=== PATIENT | female | born 1995 | race Caucasian/White ===

== ENCOUNTER 2016-12-23 09:40 | Emergency (ER) | payer BC ==
[2016-12-23] MEDS ORDERED: ONDANSETRON ODT 4 MG TABLET TL STA (12:31)
[2016-12-23] MEDS ORDERED: ONDANSETRON ODT 4 MG TABLET ONE ×2 (12:34→12:37)
== END 2016-12-23 12:59 | disposition home or self-care (01) ==
DX: R11.0 Nausea (principal); R53.1 Weakness; R35.8 Other polyuria
CPT/HCPCS: 36415; 80053; 80178; 81003; 83690; 84443; 84703; 85025; 99283; Q0162

== ENCOUNTER 2017-05-07 19:02 | Emergency (ER) | payer BC ==
--- NOTE | 2017-05-07 19:21 | ED Physician Documentation ---
PD HPI LOWER EXT INJURY - Stated complaint Stated Complaint: RT LEG PX - Chief complaint Chief Complaint: Ext Problem - History obtained from History obtained from: Patient - History of Present Illness PD HPI LOW EXT INJURY LOCATION: Right, Lower leg (It started hurting her that after doing a lot of exercise, there was no clear obvious injury though. This was 2 weeks ago and it's been hurting in the calf ever since and she is walking with a limp. There is no associated chest pain or trouble breathing.) Review of Systems Constitutional: reports: Reviewed and negative Cardiac: reports: Reviewed and negative Respiratory: reports: Reviewed and negative GI: reports: Reviewed and negative PD PAST MEDICAL HISTORY - Past Medical History Cardiovascular: None Respiratory: None Neuro: None Endocrine/Autoimmune: None GI: None Psych: Bipolar disorder - Past Surgical History Past Surgical History: No - Present Medications Home Medications: Ambulatory Orders Medication Instructions Recorded Confirmed Fluoxetine HCl [Prozac] 12/23/16 [place] Carbonate 12/23/16 Olanzapine 5 mg 12/23/16 Ondansetron HCl [Zofran] 4 mg PO Q6H PRN #20 tablet 12/23/16 Physical Therapy 1 unit .ROUTE ONCE #1 05/07/17 - Allergies Allergies/Adverse Reactions: Allergies Allergy/AdvReac Type Severity Reaction Status Date / Time No Known Drug Allergies Allergy Verified 05/07/17 19:12 - Social History Does the pt smoke?: No Smoking Status: Never smoker Does the pt drink ETOH?: No Does the pt have substance abuse?: No - POLST Patient has POLST: No PD ED PE NORMAL - Vitals Vital signs reviewed: Yes - General General: Alert and oriented X 3, No acute distress - Cardiac Cardiac: RRR, No murmur - Respiratory Respiratory: No respiratory distress, Clear bilaterally - Abdomen Abdomen: Non tender, Non distended - Extremities Extremities: Other (No clear asymmetry, edema, or tenderness of the right calf. Negative Homans sign.) - Neuro Neuro: Alert and oriented X 3, Normal speech - Psych Psych: Normal mood, Normal affect Results - Vitals Vitals: Vital Signs - 24 hr 05/07/17 19:09 Temperature 36.8 C Heart Rate 65 Respiratory 17 Rate Blood Pressure 120/67 O2 Saturation 99 Oxygen O2 Source Room air - Labs Labs: Laboratory Tests 05/07/17 05/07/17 05/07/17 19:35 19:35 19:35 WBC 9.2 RBC 4.58 Hgb 13.5 Hct 39.3 MCV 85.9 MCH 29.5 MCHC 34.4 RDW 12.5 Plt Count 319 MPV 8.6 Neut # 4.6 Lymph # 3.7 H [place] # 0.8 Eos # 0.1 Baso # 0.0 Absolute Nucleated RBC 0.00 Nucleated RBCs 0.0 Sodium 136 Potassium 4.1 Chloride 103 Carbon Dioxide 23 Anion Gap 10.0 BUN 12 Creatinine 0.7 Estimated GFR (MDRD) 105 Glucose 109 H Calcium 9.7 Serum HCG, Qual NEGATIVE Last Dose Date UNK Last Dose Time UNK [place] < 0.05 - Rads (name of study) RLE duplex Radiology: Prelim report reviewed (neg for DVT) PD MEDICAL DECISION MAKING - ED course ED course: Seemed like a leg strain/injury, that said it wasn't clear episode of injury so DVT was considered but ultrasound negative. Departure - Departure Disposition: 01 Home, Self Care Clinical Impression: Pain of lower extremity Qualifiers: Laterality: right Qualified Code(s): M79.604 - Pain in right leg Muscle strain of right lower leg Qualifiers: Encounter type: initial encounter Qualified Code(s): S86.911A - Strain of unspecified muscle(s) and tendon(s) at lower leg level, right leg, initial encounter Condition: Good Record reviewed to determine appropriate education?: Yes Instructions: ED Strain Muscle Ext Prescriptions: Physical Therapy 1 unit .ROUTE ONCE #1 Comments: Tylenol ibuprofen as needed for pain. Return if worse. Call your doctor to arrange a follow up appointment. Make the next available appointment. In the interim return anytime if worse or if new symptoms develop.
[2017-05-07 19:43] LABS: BASOPHILS % (AUTO) 0.3 %; EOSINOPHILS # (AUTO) 0.1 10^3/uL (0.0-0.7); HCT - HEMATOCRIT 39.3 % (37.0-47.0); HGB - HEMOGLOBIN 13.5 g/dL (12.0-16.0); LYMPHOCYTES # (AUTO) 3.7 10^3/uL (1.5-3.5); LYMPHOCYTES % (AUTO) 39.8 %; MEAN CORPUSCULAR HEMOGLOBIN 29.5 pg (27.0-31.0); MEAN CORPUSCULAR HGB CONC 34.4 g/dL (32.0-36.0); MEAN CORPUSCULAR VOLUME 85.9 fL (81.0-99.0); MEAN PLATELET VOLUME 8.6 fL (7.9-10.8); MONOCYTES # (AUTO) 0.8 10^3/uL (0.0-1.0); MONOCYTES % (AUTO) 8.4 %; NEUTROPHILS # (AUTO) 4.6 10^3/uL (1.5-6.6); NEUTROPHILS % (AUTO) 50.5 %; RED BLOOD COUNT 4.58 10^6/uL (4.20-5.40); RED CELL DISTRIBUTION WIDTH 12.5 % (12.0-15.0); UNCORRECTED WHITE BLOOD COUNT 9.2 x10^3/uL; WHITE BLOOD COUNT 9.2 x10^3/uL (4.8-10.8)
[2017-05-07 20:05] LABS: BUN - BLOOD UREA NITROGEN 12 mg/dL (6-20); CALCIUM 9.7 mg/dL (8.5-10.3); CARBON DIOXIDE - CO2 23 mmol/L (21-32); CHLORIDE 103 mmol/L (101-111); CREATININE 0.7 mg/dL (0.4-1.0); GFR - MDRD 105 (>89); GLUCOSE 109 mg/dL (70-100); POTASSIUM 4.1 mmol/L (3.5-5.0); SODIUM 136 mmol/L (135-145)
--- NOTE | 2017-05-07 21:19 | Ultrasound Preliminary Report ---
Exam: US Duplex Ext Veins Right IMPRESSION: No evidence for deep venous thrombosis. [facility] SITE ID: [id number]
--- NOTE | 2017-05-07 21:22 | Ultrasound Report ---
EXAM: RIGHT LOWER EXTREMITY VENOUS ULTRASOUND EXAM DATE: 05/07/2017 09:14 PM. CLINICAL HISTORY: Right leg and calf pain x2 weeks. COMPARISON: None. TECHNIQUE: Real-time sonographic vascular imaging was performed by the chief nursing officer through the lower extremity utilizing both color-flow and Doppler spectral analysis. Multiple claims representative static nate ges were saved for review. FINDINGS: Common Femoral Vein (CFV): Normal. CFV-GSV Junction: Normal. Profunda Femoral Vein (PFV): Normal. Femoral Vein (FV) Prox: Normal. Femoral Vein (FV) Mid: Normal. Femoral Vein (FV) Dist: Normal. Popliteal Vein: Normal. Posterior Tibial Veins: Normal. Peroneal Veins: Normal. Other: Targeted evaluation of the area of pain in the right calf reveals no underlying sonographic ab normality. IMPRESSION: No evidence for deep venous thrombosis. [facility] Referring Provider Line: [phone] SITE ID: [id number]
[2017-05-07 21:55] VITALS: BP 129/70
== END 2017-05-07 21:53 | disposition home or self-care (01) ==
LOC: ED 19:02
DX: S86.911A Strain of unspecified muscle(s) and tendon(s) at lower leg level, right leg, initial encounter (principal); X58.XXXA Exposure to other specified factors, initial encounter; M79.661 Pain in right lower leg
CPT/HCPCS: 36415; 80048; 80178; 84703; 85025; 99283; 99284

== ENCOUNTER 2017-05-12 18:32 | Emergency (ER) | payer BC ==
[2017-05-12 19:01] LABS: BILIRUBIN,URINE NEGATIVE (NEGATIVE)
[2017-05-12 19:04] LABS: HCG UR QUAL NEGATIVE; UA CHARGE (STRIP ONLY) YES; UR CULTURE IF IND NOT INDICATED
[2017-05-12 19:19] LABS: BASOPHILS % (AUTO) 0.4 %; EOSINOPHILS # (AUTO) 0.1 10^3/uL (0.0-0.7); EOSINOPHILS % (AUTO) 0.9 %; HCT - HEMATOCRIT 39.4 % (37.0-47.0); HGB - HEMOGLOBIN 13.4 g/dL (12.0-16.0); LYMPHOCYTES # (AUTO) 2.8 10^3/uL (1.5-3.5); MEAN CORPUSCULAR HEMOGLOBIN 29.4 pg (27.0-31.0); MEAN CORPUSCULAR HGB CONC 33.9 g/dL (32.0-36.0); MEAN CORPUSCULAR VOLUME 86.8 fL (81.0-99.0); MEAN PLATELET VOLUME 8.5 fL (7.9-10.8); MONOCYTES # (AUTO) 0.5 10^3/uL (0.0-1.0); MONOCYTES % (AUTO) 6.2 %; NEUTROPHILS % (AUTO) 54.5 %; NUCLEATED RED BLOOD CELLS AUTO 0.1 /100WBC; RED BLOOD COUNT 4.55 10^6/uL (4.20-5.40); RED CELL DISTRIBUTION WIDTH 12.4 % (12.0-15.0); UNCORRECTED WHITE BLOOD COUNT 7.4 x10^3/uL; WHITE BLOOD COUNT 7.4 x10^3/uL (4.8-10.8)
[2017-05-12 19:34] LABS: ALBUMIN/GLOBULIN RATIO 1.4 (1.0-2.2); BILIRUBIN,TOTAL 0.7 mg/dL (0.2-1.0); CALCIUM 9.8 mg/dL (8.5-10.3); CREATININE 0.7 mg/dL (0.4-1.0); POTASSIUM 3.2 mmol/L (3.5-5.0); TOTAL PROTEIN 7.8 g/dL (6.7-8.2)
[2017-05-12 19:42] VITALS: BP 118/63
[2017-05-12] MEDS ORDERED: ONDANSETRON ODT 4 MG TABLET TL STA (20:02)
[2017-05-12] MEDS ORDERED: ONDANSETRON ODT 4 MG TABLET ONE (20:21)
--- NOTE | 2017-05-12 22:01 | ED Physician Documentation ---
History of Present Illness - Stated complaint Stated Complaint: NAUSEA/SWEATING - Chief complaint Chief Complaint: Abd Pain - History obtained from History obtained from: Patient - History of Present Illness Timing: Today Pain level max: 0 Pain level now: 0 - Additonal information Additional information: Patient is a 22-year-old female who presents to the emergency department stating that she feels nauseated and hot. She arrived to the emergency department and a full body fleece Sohail bruno on an 80+ degree day. She has not been taking her psychiatric medications regularly. She states that she was here in the emergency department last week for something, but does not recall what she was here for. She denies any hallucinations. Denies suicidal or homicidal ideation. Review of Systems Constitutional: denies: Fever, Chills Throat: denies: Sore throat Cardiac: denies: Chest pain / pressure Respiratory: denies: Cough GI: reports: Nausea. denies: Abdominal Pain, Vomiting, Constipation, Diarrhea, Hematemesis, Bloody / black stool : denies: Dysuria, Frequency, Hesitancy, Now EGA Skin: denies: Rash Musculoskeletal: denies: Neck pain, Back pain PD PAST MEDICAL HISTORY - Past Medical History Cardiovascular: None Respiratory: None Neuro: None Endocrine/Autoimmune: None GI: None Psych: Bipolar disorder - Past Surgical History Past Surgical History: No - Present Medications Home Medications: Ambulatory Orders Medication Instructions Recorded Confirmed Fluoxetine HCl [Prozac] 40 mg PO DAILY 12/23/16 05/12/17 [place] Carbonate 150 mg PO DAILY 12/23/16 05/12/17 Olanzapine 15 mg PO DAILY 12/23/16 05/12/17 - Allergies Allergies/Adverse Reactions: Allergies Allergy/AdvReac Type Severity Reaction Status Date / Time No Known Drug Allergies Allergy Verified 05/07/17 19:12 - Social History Does the pt smoke?: No Smoking Status: Never smoker Does the pt drink ETOH?: No Does the pt have substance abuse?: No - POLST Patient has POLST: No PD ED PE NORMAL - Vitals Vital signs reviewed: Yes - General General: Alert and oriented X 3, No acute distress, Well developed/nourished - HEENT HEENT: PERRL, Moist mucous membranes - Neck Neck: Supple, no meningeal sign - Cardiac Cardiac: RRR - Respiratory Respiratory: No respiratory distress, Clear bilaterally - Abdomen Abdomen: Normal bowel sounds, Soft, Non tender, Non distended, No organomegaly - Back Back: No CVA TTP, No spinal TTP - Derm Derm: Warm and dry, No rash - Neuro Neuro: Alert and oriented X 3 - Psych Psych: Normal mood, Normal affect Results - Vitals Vitals: Vital Signs - 24 hr 05/12/17 05/12/17 18:36 19:41 Temperature 36.9 C 37.1 C Heart Rate 66 68 Respiratory 18 14 Rate Blood Pressure 131/70 H 118/63 O2 Saturation 100 96 Oxygen O2 Source Room air - Labs Labs: Laboratory Tests 05/12/17 05/12/17 05/12/17 18:50 19:07 19:07 WBC 7.4 RBC 4.55 Hgb 13.4 Hct 39.4 MCV 86.8 MCH 29.4 MCHC 33.9 RDW 12.4 Plt Count 303 MPV 8.5 Neut # 4.0 Lymph # 2.8 [place] # 0.5 Eos # 0.1 Baso # 0.0 Absolute Nucleated RBC 0.00 Nucleated RBCs 0.1 Sodium 137 Potassium 3.2 L Chloride 101 Carbon Dioxide 27 Anion Gap 9.0 BUN 11 Creatinine 0.7 Estimated GFR (MDRD) 105 Glucose 139 H Calcium 9.8 Total Bilirubin 0.7 AST 20 ALT 23 Alkaline Phosphatase 71 Total Protein 7.8 Albumin 4.5 Globulin 3.3 Albumin/Globulin Ratio 1.4 Lipase 20 L Urine Color YELLOW Urine Clarity CLEAR Urine pH 6.0 Ur Specific [place] 1.010 Urine Protein NEGATIVE Urine Glucose (UA) NEGATIVE Urine Ketones NEGATIVE Urine Occult Blood NEGATIVE Urine Nitrite NEGATIVE Urine Bilirubin NEGATIVE Urine Urobilinogen 0.2 (NORMAL) Ur Leukocyte Esterase NEGATIVE Ur Microscopic Review NOT INDICATED Urine Culture Comments NOT INDICATED Urine HCG, Qual NEGATIVE Last Dose Date Last Dose Time [place] 05/12/17 19:24 WBC RBC Hgb Hct MCV MCH MCHC RDW Plt Count MPV Neut # Lymph # [place] # Eos # Baso # Absolute Nucleated RBC Nucleated RBCs Sodium Potassium Chloride Carbon Dioxide Anion Gap BUN Creatinine Estimated GFR (MDRD) Glucose Calcium Total Bilirubin AST ALT Alkaline Phosphatase Total Protein Albumin Globulin Albumin/Globulin Ratio Lipase Urine Color Urine Clarity Urine pH Ur Specific [place] Urine Protein Urine Glucose (UA) Urine Ketones Urine Occult Blood Urine Nitrite Urine Bilirubin Urine Urobilinogen Ur Leukocyte Esterase Ur Microscopic Review Urine Culture Comments Urine HCG, Qual Last Dose Date UNK Last Dose Time UNK [place] < 0.05 PD MEDICAL DECISION MAKING - ED course Complexity details: considered differential, d/w patient ED course: Patient is a 22-year-old female who presents to the emergency department with nausea. No other symptoms other than feeling warm. This improved with Zofran and removing her fleece outfit. She felt better. Her lithium level is undetectable. Encouraged her to take her lithium daily. Patient counseled regarding signs and symptoms for which I believe and urgent re-evaluation would be necessary. Patient with good understanding of and agreement to plan and is comfortable going home at this time This document was made in part using voice recognition software. While efforts are made to proofread this document, sound alike and grammatical errors may occur. Departure - Departure Disposition: 01 Home, Self Care Clinical Impression: Nausea Condition: Good Instructions: ED Nausea Vomiting Follow-Up: Vernell Shultz MD [Primary Care Provider] - Within 1 week Comments: Return if you worsen. The cause of your symptoms is unclear today. Discharge Date/Time: 05/12/17 21:15
== END 2017-05-12 21:15 | disposition home or self-care (01) ==
LOC: ED 18:32
DX: R11.0 Nausea (principal)
CPT/HCPCS: 36415; 80053; 80178; 81003; 81025; 83690; 85025; 99282; 99284; Q0162; 81001; 87086